=== PATIENT | male | born 1995 | race Caucasian/White ===

== ENCOUNTER → 2017-11-05 | Outpatient (CLI) | payer SELFPAY | LOC: M OUTALCOH 07:30 | DX: F10.10 Alcohol abuse, uncomplicated (principal) ==

== ENCOUNTER 2017-11-16 16:00 | Outpatient (RCR) | payer MEDICAID, SELFPAY | END 2017-11-30 | LOC: M OUTALCOH 16:00 | DX: F10.10 Alcohol abuse, uncomplicated (principal) ==

== ENCOUNTER → 2018-04-12 | Outpatient (REF) | payer BC ==
[2018-04-12 16:26] LABS: BASO % 0.3 % (0.0-1.0); EOS # 0.1 10^3/uL (0.0-0.50); EOS % 0.8 % (0.0-3.0); HEMATOCRIT 45.9 % (42.0-52.0); LYMPH # 1.8 10^3/uL (1.5-6.5); LYMPH % 21.9 % (24.0-44.0); MEAN CORPUSCULAR HEMOGLOBIN 30.7 pg (27.0-33.0); MEAN CORPUSCULAR HGB CONC 34.9 g/dl (32.0-36.5); MEAN CORPUSCULAR VOLUME 88.1 fl (80.0-96.0); MONO # 0.5 10^3/uL (0.0-0.8); MONO % 5.6 % (0.0-5.0); NEUTROPHILS # 5.7 10^3/uL (1.8-7.7); PLATELET COUNT, AUTOMATED 287 10^3/uL (150-450); RED BLOOD COUNT 5.21 10^6/uL (4.30-6.10)
[2018-04-12 16:33] LABS: ALBUMIN 4.7 GM/DL (3.2-5.2); ALT/SGPT 20 U/L (12-78); BILIRUBIN,TOTAL 0.5 MG/DL (0.2-1.0); BLOOD UREA NITROGEN 11 MG/DL (7-18); CALCIUM LEVEL 9.6 MG/DL (8.5-10.1); CARBON DIOXIDE LEVEL 28 MEQ/L (21-32); CHLORIDE LEVEL 104 MEQ/L (98-107); CHOLESTEROL LEVEL 173 MG/DL (<200); CHOLESTEROL RISK RATIO 2.932 (<5); CREATININE FOR GFR 0.85 MG/DL (0.70-1.30); GLOMERULAR FILTRATION RATE > 60.0 (>60); GLUCOSE, FASTING 71 MG/DL (70-100); HDL CHOLESTEROL 59 MG/DL (>40); LDL CHOLESTEROL 100 MG/DL (<100); NON-HDL-C 114 MG/DL; POTASSIUM SERUM 4.2 MEQ/L (3.5-5.1); SODIUM LEVEL 139 MEQ/L (136-145); TOTAL PROTEIN 7.9 GM/DL (6.4-8.2); TRIGLYCERIDES LEVEL 69 MG/DL (<150)
== END ==
LOC: M SFHCLERA 11:50
PROVIDERS: ATTEND Nurse Practitioner Family
DX: F41.9 Anxiety disorder, unspecified (principal); K92.1 Melena

== ENCOUNTER → 2018-04-25 | Outpatient (REF) | payer BC ==
[~2018-04-25] MED LIST: ACET-683 PO; DOXY100C; ESCI10TA2; IBUP-1022 PO; KEFL500C17 PO; TRAM50TA2 PO
== END ==
LOC: M SFHCLERA 16:17
PROVIDERS: ATTEND Nurse Practitioner Family
DX: R31.0 Gross hematuria (principal)

== ENCOUNTER 2018-04-30 16:05 | Emergency (ER) | payer BC ==
[~2018-04-30] VITALS: Ht 177.8 cm; Wt 86.4 kg
[2018-04-30] MEDS ORDERED: DOXY100C (16:10)
[2018-04-30] MEDS ORDERED: ESCI10TA2 (16:10)
[2018-04-30] MEDS ORDERED: PERCOCET 5MG/325MG TAB PO ONE (17:00)
[2018-04-30] MEDS ORDERED: ONDANSETRON 4 MG ORAL DISINTEGRATING TAB (Q0162 PER 1MG) PO ONE (17:45)
[2018-04-30] MEDS ORDERED: LIDOCAINE 1% MDV 20ML VIAL IM ONE (17:45)
[2018-04-30] MEDS ORDERED: ADACEL/BOOSTRIX VACCINE (DIPHTH/PERTUSS/ACELL/TETANUS)0.5ML SYR (90715) IM ONE (17:45)
[2018-04-30] MEDS ORDERED: NS 1,000 ML IV ONE (18:00)
[2018-04-30] MEDS ORDERED: cefTRIAXone SOD 1 GM in D5W MINI-BAG PLUS 50 ML IV ONE (18:00)
--- NOTE | 2018-04-30 18:10 | REP ---
Right fingers, four views: There are comminuted fractures in the distal r[place] of the index and middle fingers. The overlying dressing material obscures visualization. No other fractures are identified. No dislocation is identified. No radiopaque foreign body. Electronically Signed by Leandro Montejo MD 04/30/2018 06:01 P
[2018-04-30] MEDS ORDERED: NEOSPORIN OINT 0.9 GM PKT (FLOOR STOCK) As Ordered ONE (18:56)
[2018-04-30] MEDS ORDERED: ACET-683 PO (19:05)
[2018-04-30] MEDS ORDERED: IBUP-1022 PO (19:05)
[2018-04-30] MEDS ORDERED: KEFL500C17 PO (19:05)
[2018-04-30] MEDS ORDERED: TRAM50TA2 PO (19:05)
[2018-04-30] MEDS ORDERED: CEPHALEXIN 500 MG CAP PO ONE (19:15)
[2018-04-30 19:17] VITALS: BP 129/76
== END 2018-04-30 19:32 | disposition home or self-care (01) ==
LOC: M ED 16:05
DX: S60.410A Abrasion of right index finger, initial encounter (principal); S61.304A Unspecified open wound of right ring finger with damage to nail, initial encounter; S68.622A Partial traumatic transphalangeal amputation of right middle finger, initial encounter; W26.8XXA Contact with other sharp object(s), not elsewhere classified, initial encounter; Y92.018 Other place in single-family (private) house as the place of occurrence of the external cause
CPT/HCPCS: 73140; 90471; 90715; 96365; 99284; J0696; Q0162